=== PATIENT | female | born 1975 | race Caucasian/White ===

== ENCOUNTER 2024-06-18 14:44 | Emergency (ER) | payer OTHER ==
[2024-06-18 14:56] VITALS: BP 126/82; PULSE 97; RESP 18; TEMP 97.8
[2024-06-18 15:45] LABS: Amorphous Sediment,Urine Rare /hpf; Appearance,Urine Cloudy (Clear); Bacteria,Urine Occasional /hpf; Bilirubin,Urine Negative (Negative); Blood,Urine Negative (Negative); Color,Urine Colorless; Glucose,Urine (UA) Negative (Negative); Ketones,Urine Negative (Negative); Leukocyte Esterase,Urine Trace (Negative); Mucus,Urine Rare /hpf; Nitrite,Urine Negative (Negative); PH, Urine 5.5 (5.0-8.0); Protein,Urine Negative (Negative); RBC,Urine 1 /hpf (0-5); Specific Gravity,Urine 1.004 (1.001-1.035); Squamous Epithelial Cell,Urine 6 /hpf (0-4); Urobilinogen,Urine <2.0 mg/dL (<2.0); WBC,Urine 2 /hpf (0-5)
[2024-06-18 15:48] LABS: Basophils # (A) 0.1 k/uL (0-0.2); Basophils % (A) 1 %; Eosinophils # (A) 0.2 k/uL (0-0.7); Eosinophils % (A) 2 %; HCT 42.6 % (34.0-46.0); HGB 13.6 gm/dL (11.4-16.0); Lymphocytes # (A) 2.5 k/uL (1.0-4.8); Lymphocytes % (A) 26 %; MCH 31.3 pg (25.0-35.0); MCHC 31.8 g/dL (31.0-37.0); MCV 98.4 fL (80.0-100.0); Mean Platelet Volume 6.9; Monocytes # (A) 0.3 k/uL (0-1.0); Monocytes % (A) 3 %; Neutrophils # (A) 6.5 k/uL (1.3-7.7); Neutrophils % (A) 66 %; Platelet Count 328 k/uL (150-450); RBC 4.33 m/uL (3.80-5.40); RDW 14.8 % (11.5-15.5); WBC 9.9 k/uL (3.8-10.6)
[2024-06-18 16:10] LABS: ALT 32 U/L (4-34); African American GFR (CKD) >90 (>60 ml/min/1.73 sqM); Anion Gap 15 mmol/L; Blood Urea Nitrogen 10 mg/dL (7-17); Calcium 9.9 mg/dL (8.4-10.2); Carbon Dioxide 22 mmol/L (22-30); Chloride 99 mmol/L (98-107); Glucose 77 mg/dL (74-99); Lipase 115 U/L (23-300); Non-African American GFR(CKD) >90 (>60 ml/min/1.73 sqM); Sodium 136 mmol/L (137-145)
[2024-06-18] MEDS: LORazepam 2 MG/ML INJ IV STA ×2 (16:13→18:36)
[2024-06-18] MEDS: SODIUM CHLORIDE 0.9% 1,000 ML IV STA (16:15)
--- NOTE | 2024-06-18 16:22 | ED ---
Alcohol HPI - General Chief Complaint: Alcohol Stated Complaint: ETOH Time Seen by Provider: 06/18/24 14:45 Source: patient, EMS, RN notes reviewed Mode of arrival: EMS Limitations: no limitations - History of Present Illness Initial Comments: 48-year-old female presents emergency department via EMS from [place] for alcohol intoxication. Patient states she drinks heavily daily. Patient does note that she is having some withdrawal symptoms. She states that she is primarily shaky denies any hallucinations. Patient denies any chest pain shortness of breath fevers chills. Patient states she was hospitalized a few weeks ago was on phenobarbital. Patient denies any drug use. - Related Data Home Medications Medication Instructions Recorded Confirmed Budesonide/Formoterol Fumarate 2 puff INHALATION RT-BID 06/18/24 06/19/24 [Symbicort 160-4.5 Mcg Inhaler] Dicyclomine [Bentyl] 10 mg PO TID 06/18/24 06/19/24 Folic Acid 1 mg PO DAILY 06/18/24 06/19/24 Metoprolol Tartrate [Lopressor] 50 mg PO DAILY 06/18/24 06/19/24 Pantoprazole Sodium [Protonix] 20 mg PO BID 06/18/24 06/19/24 Thiamine [Vitamin B-1] 100 mg PO DAILY 06/18/24 06/19/24 amLODIPine [Norvasc] 10 mg PO DAILY 06/18/24 06/19/24 diazePAM [Valium] 10 mg PO TID 06/18/24 06/19/24 lisinopriL 40 mg PO DAILY 06/18/24 06/19/24 Allergies Allergy/AdvReac Type Severity Reaction Status Date / Time cephalexin [From Keflex] Allergy Intermediate Swelling Verified 06/19/24 09:07 Penicillins Allergy Swelling Verified 06/19/24 09:07 Review of Systems ROS Statement: Those systems with pertinent positive or pertinent negative responses have been documented in the HPI. ROS Other: All systems not noted in ROS Statement are negative. General Exam Limitations: no limitations General appearance: alert, in no apparent distress Head exam: Present: atraumatic, normocephalic, normal inspection Eye exam: Present: normal appearance, PERRL, EOMI. Absent: scleral icterus, conjunctival injection, periorbital swelling ENT exam: Present: normal exam, mucous membranes moist Neck exam: Present: normal inspection, full ROM. Absent: tenderness, meningismus, lymphadenopathy Respiratory exam: Present: normal lung sounds bilaterally. Absent: respiratory distress, wheezes, rales, rhonchi, stridor Cardiovascular Exam: Present: regular rate, normal rhythm, normal heart sounds. Absent: systolic murmur, diastolic murmur, rubs, gallop, clicks GI/Abdominal exam: Present: soft, normal bowel sounds. Absent: distended, tenderness, guarding, rebound, rigid Neurological exam: Present: alert, oriented X3, CN II-XII intact Skin exam: Present: warm, dry, intact, normal color. Absent: rash Course Vital Signs 06/18/24 14:48 Temperature 97.8 F Pulse Rate 97 Respiratory 18 Rate Blood Pressure 126/82 O2 Sat by Pulse 94 L Oximetry Medical Decision Making - Medical Decision Making Was pt. sent in by a medical professional or institution (, PA, SHEET METAL FABRICATOR, urgent care, hospital, or skilled nursing...) When possible be specific @ -[place] Did you speak to anyone other than the patient for history (EMS, parent, family, police, friend...)? What history was obtained from this source @ -No Did you review nursing and triage notes (agree or disagree)? Why? @ -I reviewed and agree with nursing and triage notes Were old charts reviewed (outside hosp., previous admission, EMS record, old EKG, old radiological studies, urgent care reports/EKG's, skilled nursing records)? Report findings @ -No old charts were reviewed Differential Diagnosis (chest pain, altered mental status, abdominal pain women, abdominal pain men, vaginal bleeding, weakness, fever, dyspnea, syncope, headache, dizziness, GI bleed, back pain, seizure, CVA, palpatations, mental health, musculoskeletal)? @ -Alcohol abuse alcohol intoxication, alcohol withdrawal EKG interpreted by me (3pts min.). @ -None X-rays interpreted by me (1pt min.). @ -None done CT interpreted by me (1pt min.). @ -None done U/S interpreted by me (1pt. min.). @ -None done What testing was considered but not performed or refused? (CT, X-rays, U/S, labs)? Why? @ -None What meds were considered but not given or refused? Why? @ -None Did you discuss the management of the patient with other professionals (professionals i.e. DrEvan, PA, SHEET METAL FABRICATOR, lab, RT, psych nurse, social services specialist, clerk supervisor, teacher, planned giving officer, sample case porter)? Give summary @ -No Was smoking cessation discussed for >3mins.? @ -No Was critical care preformed (if so, how long)? @ -No Were there social determinants of health that impacted care today? How? (Homelessness, low income, unemployed, alcoholism, drug addiction, granger sportation, low edu. Level, literacy, decrease access to med. care, correction, rehab)? @ -No Was there de-escalation of care discussed even if they declined (Discuss DNR or withdrawal of care, Hospice)? DNR status @ -No What co-morbidities impacted this encounter? (DM, HTN, Smoking, COPD, CAD, Cancer, CVA, ARF, Chemo, Hep., AIDS, mental health diagnosis, sleep apnea, morbid obesity)? @ -Alcohol abuse Was patient admitted / discharged? Hospital course, mention meds given and route, prescriptions, significant lab abnormalities, going to OR and other pertinent info. @ -Discharged patient laboratory studies unremarkable patient has no complaints. Patient not show any significant signs of alcohol withdrawal she is stable for discharge back to [place] for treatment as she was sent here from there facility Undiagnosed new problem with uncertain prognosis? @ -No Drug Therapy requiring intensive monitoring for toxicity (Heparin, Nitro, Insulin, Cardizem)? @ -No Were any procedures done? @ -No Diagnosis/symptom? @Alcohol abuse, alcohol intoxication Acute, or Chronic, or Acute on Chronic? @ -Acute Uncomplicated (without systemic symptoms) or Complicated (systemic symptoms)? @ -Uncomplicated Side effects of treatment? @ -No Exacerbation, Progression, or Severe Exacerbation? @ -No Poses a threat to life or bodily function? How? (Chest pain, USA, [place], pneumonia, PE, COPD, DKA, ARF, appy, cholecystitis, CVA, Diverticulitis, Homicidal, Suicidal, threat to staff... and all critical care pts) @ -No - Lab Data Result diagrams: 06/18/24 15:35 06/18/24 15:35 Lab Results 06/18/24 06/18/24 06/18/24 Range/Units 15:27 15:35 15:35 WBC 9.9 (3.8-10.6) k/uL RBC 4.33 (3.80-5.40) m/uL Hgb 13.6 (11.4-16.0) gm/dL Hct 42.6 (34.0-46.0) % MCV 98.4 (80.0-100.0) fL MCH 31.3 (25.0-35.0) pg MCHC 31.8 (31.0-37.0) g/dL RDW 14.8 (11.5-15.5) % Plt Count 328 (150-450) k/uL MPV 6.9 Neutrophils % 66 % Lymphocytes % 26 % Monocytes % 3 % Eosinophils % 2 % Basophils % 1 % Neutrophils # 6.5 (1.3-7.7) k/uL Lymphocytes # 2.5 (1.0-4.8) k/uL Monocytes # 0.3 (0-1.0) k/uL Eosinophils # 0.2 (0-0.7) k/uL Basophils # 0.1 (0-0.2) k/uL Sodium 136 L (137-145) mmol/L Potassium 5.5 H (3.5-5.1) mmol/L Chloride 99 (98-107) mmol/L Carbon Dioxide 22 (22-30) mmol/L Anion Gap 15 mmol/L BUN 10 (7-17) mg/dL Creatinine 0.56 (0.52-1.04) mg/dL Est GFR (CKD-EPI)AfAm >90 (>60 ml/min/1.73 sqM) Est GFR (CKD-EPI)NonAf >90 (>60 ml/min/1.73 sqM) Glucose 77 (74-99) mg/dL Calcium 9.9 (8.4-10.2) mg/dL Magnesium 1.6 (1.6-2.3) mg/dL Total Bilirubin 1.0 (0.2-1.3) mg/dL AST 66 H (14-36) U/L ALT 32 (4-34) U/L Alkaline Phosphatase 91 (38-126) U/L Total Protein 8.7 H (6.3-8.2) g/dL Albumin 5.3 H (3.5-5.0) g/dL Lipase 115 (23-300) U/L Urine Color Colorless Urine Appearance Cloudy H (Clear) Urine pH 5.5 (5.0-8.0) Ur Specific Frazer 1.004 (1.001-1.035) Urine Protein Negative (Negative) Urine Glucose (UA) Negative (Negative) Urine Ketones Negative (Negative) Urine Blood Negative (Negative) Urine Nitrite Negative (Negative) Urine Bilirubin Negative (Negative) Urine Urobilinogen <2.0 (<2.0) mg/dL Ur Leukocyte Esterase Trace H (Negative) Urine RBC 1 (0-5) /hpf Urine WBC 2 (0-5) /hpf Ur Squamous Epith Cells 6 H (0-4) /hpf Amorphous Sediment Rare H (None) /hpf Urine Bacteria Occasional H (None) /hpf Urine Mucus Rare H (None) /hpf Disposition Clinical Impression: Alcoholic intoxication, Alcohol abuse Disposition: HOME SELF-CARE Condition: Stable Is patient prescribed a controlled substance at d/c from ED?: No Referrals: None,Stated [Primary Care Provider] - 1-2 days Time of Disposition: 16:50
[2024-06-18 16:47] LABS: AST 66 U/L (14-36); Potassium 5.5 mmol/L (3.5-5.1)
[2024-06-18 16:48] LABS: Albumin 5.3 g/dL (3.5-5.0); Alkaline Phosphatase 91 U/L (38-126); Magnesium 1.6 mg/dL (1.6-2.3); Total Protein 8.7 g/dL (6.3-8.2)
[2024-06-18] MEDS: SODIUM CHLORIDE 0.9% 500 ML 500 ML IV STA (18:18)
== END 2024-06-18 19:15 | disposition home or self-care (01) ==
LOC: EC 14:44
CPT/HCPCS: 36415; 80053; 81001; 83690; 83735; 85025; 96361; 96374; 99284

== ENCOUNTER 2024-06-18 21:13 | Observation (INO) | payer OTHER ==
--- NOTE | 2024-06-18 22:01 | ED ---
Chest Pain HPI - General Chief Complaint: Chest Pain Stated Complaint: ETOH Time Seen by Provider: 06/18/24 21:25 Source: patient, EMS, RN notes reviewed, old records reviewed Mode of arrival: EMS Limitations: no limitations - History of Present Illness Initial Comments: This is a 48-year-old female to the ER for evaluation who presents today for evaluation regards to chest pain. Patient was in the emergency room earlier today and presents again tonight for chest pain severe chest pain shaking anxiety and history of alcohol abuse MD Complaint: chest pain -: days(s) Onset: during rest, during exertion Pain Location: substernal Pain Radiation: none Severity: moderate Severity scale (1-10): 7 Quality: sharp Consistency: constant Improves With: nothing Worsens With: nothing, inspiration Anginal Symptoms: dyspnea, sense of impending doom, other Other Symptoms: palpitations Treatments Prior to Arrival: none - Related Data Home Medications Medication Instructions Recorded Confirmed Budesonide/Formoterol Fumarate 2 puff INHALATION RT-BID 06/18/24 06/19/24 [Symbicort 160-4.5 Mcg Inhaler] Dicyclomine [Bentyl] 10 mg PO TID 06/18/24 06/19/24 Folic Acid 1 mg PO DAILY 06/18/24 06/19/24 Metoprolol Tartrate [Lopressor] 50 mg PO DAILY 06/18/24 06/19/24 Pantoprazole Sodium [Protonix] 20 mg PO BID 06/18/24 06/19/24 Thiamine [Vitamin B-1] 100 mg PO DAILY 06/18/24 06/19/24 amLODIPine [Norvasc] 10 mg PO DAILY 06/18/24 06/19/24 lisinopriL 40 mg PO DAILY 06/18/24 06/19/24 Allergies Allergy/AdvReac Type Severity Reaction Status Date / Time cephalexin [From Keflex] Allergy Intermediate Swelling Verified 06/19/24 09:07 Penicillins Allergy Swelling Verified 06/19/24 09:07 Review of Systems ROS Statement: Those systems with pertinent positive or pertinent negative responses have been documented in the HPI. ROS Other: All systems not noted in ROS Statement are negative. Past Medical History Past Medical History: COPD, Hypertension, Osteoarthritis (OA) History of Any Multi-Drug Resistant Organisms: None Reported Past Surgical History: Section, Heart Catheterization, Orthopedic Surgery Past Psychological History: Anxiety Smoking Status: Current every day smoker Past Alcohol Use History: Daily Past Drug Use History: None Reported General Exam Limitations: no limitations General appearance: alert, in no apparent distress, anxious Head exam: Present: atraumatic, normocephalic, normal inspection Eye exam: Present: normal appearance, PERRL, EOMI. Absent: scleral icterus, conjunctival injection, periorbital swelling ENT exam: Present: normal exam, mucous membranes moist Neck exam: Present: normal inspection. Absent: tenderness, meningismus, lymphadenopathy Respiratory exam: Present: normal lung sounds bilaterally. Absent: respiratory distress, wheezes, rales, rhonchi, stridor Cardiovascular Exam: Present: regular rate, normal rhythm, normal heart sounds. Absent: systolic murmur, diastolic murmur, rubs, gallop, clicks GI/Abdominal exam: Present: soft, normal bowel sounds. Absent: distended, tenderness, guarding, rebound, rigid Extremities exam: Present: normal inspection, full ROM, normal capillary refill. Absent: tenderness, pedal edema, joint swelling, calf tenderness Back exam: Present: normal inspection Neurological exam: Present: alert, oriented X3, CN II-XII intact Psychiatric exam: Present: normal affect, normal mood Skin exam: Present: warm, dry, intact, normal color. Absent: rash Course Vital Signs 06/18/24 06/18/24 06/18/24 21:20 22:28 22:32 Temperature 98.4 F Pulse Rate 84 84 84 Pulse Rate [ Pulse Oximetery ] Respiratory 18 Rate Blood Pressure 112/73 O2 Sat by Pulse 94 L Oximetry 06/19/24 06/19/24 06/19/24 00:45 04:05 06:22 Temperature Pulse Rate 84 70 Pulse Rate [ Pulse Oximetery ] Respiratory 18 16 16 Rate Blood Pressure 107/83 92/60 95/66 O2 Sat by Pulse 95 97 Oximetry 06/19/24 06/19/24 06/19/24 08:59 09:27 13:00 Temperature Pulse Rate 89 77 Pulse Rate [ Pulse Oximetery ] Respiratory 16 18 Rate Blood Pressure 101/80 159/101 O2 Sat by Pulse 97 98 98 Oximetry 06/19/24 06/19/24 06/19/24 15:37 15:55 17:17 Temperature Pulse Rate 91 92 Pulse Rate [ 95 Pulse Oximetery ] Respiratory 19 18 Rate Blood Pressure 102/65 116/75 O2 Sat by Pulse 98 97 Oximetry 06/19/24 06/19/24 06/19/24 18:14 19:19 21:24 Temperature Pulse Rate 84 84 97 Pulse Rate [ Pulse Oximetery ] Respiratory 19 18 18 Rate Blood Pressure 112/76 106/69 124/73 O2 Sat by Pulse 98 96 97 Oximetry 06/19/24 21:43 Temperature 98.2 F Pulse Rate Pulse Rate [ Pulse Oximetery ] Respiratory Rate Blood Pressure O2 Sat by Pulse Oximetry - Reevaluation(s) Reevaluation #1: 06/18/24 23:30 Medical records reviewed Reevaluation #2: 06/18/24 23:30 Patient symptoms are unchanged Reevaluation #3: 06/18/24 23:30 Patient still with chest pain here in the ER informed of results and questions answered Reevaluation #4: Was pt. sent in by a medical professional or institution (, PA, CASING MATERIAL WEIGHER, urgent care, hospital, or group home...) When possible be specific @ -no Did you speak to anyone other than the patient for history (EMS, parent, family, police, friend...)? What history was obtained from this source @ -no Did you review nursing and triage notes (agree or disagree)? Why? @ -agree Are old charts reviewed (outside hosp., previous admission, EMS record, old EKG, old radiological studies, urgent care reports/EKG's, group home records)? Report findings @ -yes Differential Diagnosis (chest pain, altered mental status, abdominal pain women, abdominal pain men, vaginal bleeding, weakness, fever, dyspnea, syncope, headache, dizziness, GI bleed, back pain, seizure, CVA, palpatations, mental health, musculoskeletal)? @ -prior EKG interpreted by me (3pts min.). @ -no X-rays interpreted by me (1pt min.). @ -no CT interpreted by me (1pt min.). @ -no U/S interpreted by me (1pt. min.). @ -no What testing was considered but not performed or refused? (CT, X-rays, U/S, labs)? Why? @ -none What meds were considered but not given or refused? Why? @ -none Did you discuss the management of the patient with other professionals (terri beltran i.eEvan Tidwell, PA, CASING MATERIAL WEIGHER, lab, RT, psych nurse, social media specialist, perinatal coordinator, teacher, sports development officer, case planner)? Give summary @ -no Was smoking cessation discussed for >3mins.? @ -no Was critical care preformed (if so, how long)? @ -no Were there social determinants of health that impacted care today? How? (Homelessness, low income, unemployed, alcoholism, drug addiction, transportation, low edu. Level, literacy, decrease access to med. care, longterm, rehab)? @ -none Was there de-escalation of care discussed even if they declined (Discuss DNR or withdrawal of care, Hospice)? DNR status @ -no What co-morbidities impacted this encounter? (DM, HTN, Smoking, COPD, CAD, Cancer, CVA, ARF, Chemo, Hep., AIDS, mental health diagnosis, sleep apnea, morbid obesity)? @ -none Was patient admitted / discharged? Hospital course, mention meds given and route, prescriptions, significant lab abnormalities, going to OR and other pertinent info. @ - 48 female will be admitted for chest pain observation with significant intoxication Discharge Undiagnosed new problem with uncertain prognosis? @ -no Drug Therapy requiring intensive monitoring for toxicity (Heparin, Nitro, Insulin, Cardizem)? @ -no Were any procedures done? @ -no Diagnosis/symptom? @ -Alcohol intoxication Acute, or Chronic, or Acute on Chronic? @ -Acute Uncomplicated (without systemic symptoms) or Complicated (systemic symptoms)? @ -Complicated Side effects of treatment? @ -no Exacerbation, Progression, or Severe Exacerbation? @ -exacerbation Poses a threat to life or bodily function? How? (Chest pain, USA, [place], pneumonia, PE, COPD, DKA, ARF, appy, cholecystitis, CVA, Diverticulitis, Homicidal, Suicidal, threat to staff... and all critical care pts) @ -yes severe intoxication Reevaluation #5: Differential Chest Pain: Stable Angina, Unstable Angina, STEMI, NSTEMI Aortic Dissection, Pneumothorax, Musculoskeletal, Esophageal Spasm GERD, Cholecystitis, Pancreatitis, Zoster, this is not meant to be an all-inclusive list. - Consultations Consultation #1: Sound who agrees to admit this patient Procedures - Restraint - Face to Face Restraint Occurrence 1 Patient's Immediate Situation: Endangers self safety, Endangers others' safety, Endangers staff safety, Violent behavior Patient's Reaction to the Intervention: Uncooperative, Angry, Fearful, Nervous, Anxious Patient's Medical & Behavioral Condition: Awake Need to Continue or Terminate Restraint or Seclusion: Continue Face to Face Eval of Restraint Date: 06/19/24 Face to Face Eval of Restraint Time: 02:10 Chest Pain MDM - MDM 48 female will be admitted for chest pain observation with significant intoxication Disposition Clinical Impression: Alcoholic intoxication, Alcohol abuse, Chest pain Disposition: ADMITTED IP TO THIS HOSP Condition: Fair Is patient prescribed a controlled substance at d/c from ED?: No Time of Disposition: 23:30
[2024-06-18 22:24] LABS: Basophils # (A) 0.1 k/uL (0-0.2); Basophils % (A) 1 %; Eosinophils # (A) 0.2 k/uL (0-0.7); Eosinophils % (A) 2 %; HCT 37.5 % (34.0-46.0); HGB 12.1 gm/dL (11.4-16.0); Lymphocytes # (A) 2.4 k/uL (1.0-4.8); Lymphocytes % (A) 28 %; MCH 31.5 pg (25.0-35.0); MCHC 32.1 g/dL (31.0-37.0); MCV 98.2 fL (80.0-100.0); Mean Platelet Volume 6.8; Monocytes # (A) 0.6 k/uL (0-1.0); Monocytes % (A) 7 %; Neutrophils % (A) 59 %; Platelet Count 314 k/uL (150-450); RBC 3.82 m/uL (3.80-5.40); WBC 8.5 k/uL (3.8-10.6)
[2024-06-18] MEDS: IPRATROPIUM-ALBUTEROL 3 ML NEB INHALATION STA (22:28)
[2024-06-18 22:32] LABS: Prothrombin Time 10.8 sec (10.0-12.5)
[2024-06-18 22:34] LABS: AST 43 U/L (14-36); African American GFR (CKD) >90 (>60 ml/min/1.73 sqM); Albumin 4.6 g/dL (3.5-5.0); Anion Gap 14 mmol/L; Blood Urea Nitrogen 15 mg/dL (7-17); Calcium 9.5 mg/dL (8.4-10.2); Carbon Dioxide 24 mmol/L (22-30); Chloride 101 mmol/L (98-107); Glucose 88 mg/dL (74-99); Magnesium 1.5 mg/dL (1.6-2.3); Non-African American GFR(CKD) >90 (>60 ml/min/1.73 sqM); Phosphorus 3.6 mg/dL (2.5-4.5); Potassium 4.2 mmol/L (3.5-5.1); Sodium 139 mmol/L (137-145); Total Bilirubin 0.4 mg/dL (0.2-1.3); Total Protein 7.2 g/dL (6.3-8.2)
[2024-06-18 22:35] LABS: ALT 27 U/L (4-34); Alkaline Phosphatase 86 U/L (38-126); Lipase 138 U/L (23-300)
[2024-06-18 22:47] LABS: Alcohol 248 mg/dL
[2024-06-18] MEDS: LORazepam 2 MG/ML INJ IV STA (23:12)
[2024-06-18] MEDS: SODIUM CHLORIDE 0.9% 1,000 ML IV STA (23:12)
[2024-06-18] MEDS ORDERED: NALOXONE 0.4 MG/ML 1 ML VIAL IV PRN (23:28)
[2024-06-18] MEDS ORDERED: MORPHINE SULFATE 4 MG/ML SYRINGE IV PRN (23:28)
[2024-06-18] MEDS: SODIUM CHLORIDE 0.9% 1,000 ML IV SCH (23:52)
[2024-06-18] MEDS: MAGNESIUM SULFATE-D5W PMX 1 GM in DEXTROSE/WATER 1 100ML.BAG IVPB ONE (23:54)
[2024-06-18] MEDS: MAGNESIUM OXIDE 400 MG TAB PO STA ×2 (23:55)
[2024-06-19] MEDS: LORazepam 2 MG/ML INJ IV STA (00:40)
[2024-06-19] MEDS: SODIUM CHLORIDE 0.9% 1,000 ML IV ONE (01:00)
[2024-06-19] MEDS: diphenhydrAMINE 50 MG/ML 1 ML VIAL IVP STA (01:00)
[2024-06-19] MEDS: ZIPRASIDONE 20 MG VIAL IM STA (03:22)
[2024-06-19 05:00] LABS: ALT 25 U/L (4-34); AST 44 U/L (14-36); African American GFR (CKD) >90 (>60 ml/min/1.73 sqM); Albumin 4.5 g/dL (3.5-5.0); Alkaline Phosphatase 84 U/L (38-126); Anion Gap 11 mmol/L; Blood Urea Nitrogen 12 mg/dL (7-17); Calcium 9.1 mg/dL (8.4-10.2); Carbon Dioxide 25 mmol/L (22-30); Chloride 109 mmol/L (98-107); Glucose 77 mg/dL (74-99); Lipase 138 U/L (23-300); Magnesium 2.1 mg/dL (1.6-2.3); Non-African American GFR(CKD) >90 (>60 ml/min/1.73 sqM); Phosphorus 3.3 mg/dL (2.5-4.5); Potassium 4.3 mmol/L (3.5-5.1); Sodium 145 mmol/L (137-145); Total Bilirubin 0.4 mg/dL (0.2-1.3); Total Protein 7.4 g/dL (6.3-8.2)
[2024-06-19 05:01] LABS: Basophils % (A) 1 %; Eosinophils # (A) 0.2 k/uL (0-0.7); Eosinophils % (A) 3 %; HCT 39.3 % (34.0-46.0); HGB 12.8 gm/dL (11.4-16.0); Lymphocytes # (A) 2.8 k/uL (1.0-4.8); Lymphocytes % (A) 50 %; MCH 31.6 pg (25.0-35.0); MCHC 32.7 g/dL (31.0-37.0); MCV 96.5 fL (80.0-100.0); Mean Platelet Volume 7.8; Monocytes # (A) 0.3 k/uL (0-1.0); Monocytes % (A) 5 %; Neutrophils # (A) 2.3 k/uL (1.3-7.7); Neutrophils % (A) 40 %; Platelet Count 211 k/uL (150-450); RBC 4.07 m/uL (3.80-5.40); RDW 15.6 % (11.5-15.5); WBC 5.6 k/uL (3.8-10.6)
[2024-06-19] MEDS ORDERED: LORazepam 0.5 MG TAB PO PRN (06:41)
--- NOTE | 2024-06-19 06:57 | P.HPIM ---
History of Present Illness H&P Date: 06/19/24 Chief Complaint: Chest pain 48-year-old female with alcohol abuse Patient is heavily sedated report was obtained by discussing the case with ED doctor and the nurse Patient coming into the hospital for evaluation reporting chest pain. He is known to have alcohol abuse and dependence she was earlier at [place] for alcohol intoxication, he was evaluated in the ED earlier and was discharged back to [place]. However she comes back because [facility] did not have an admitting nurse and was not able to accept her. While waiting in the ED she started drinking again, confirmed by increasing alcohol level in the blood her belongings were taken away patient became aggressive at 1 point she was in 4 point restraints and then she was given Zanedon review of systems Pertinent positives as noted in HPI. All other systems were reviewed and are negative on exam Constitutional: No acute distress, Eyes: Anicteric sclerae, moist conjunctiva, Pupils equal round reactive to light Lungs: Clear to auscultation Clear to percussion Normal respiratory effort, no accessory muscle use Cardiovascular: Heart regular in rate and rhythm, No murmurs, gallops, or rubs No peripheral edema Abdominal: Soft Nontender, no guarding, rebound or rigidity Abdomen moving with respiration Normoactive bowel sounds Extremities: No digital cyanosis No clubbing Pedal pulses intact and symmetrical Radial pulses intact and symmetrical No calf tenderness Psychiatric: Heavily sedated sleeping at this time Neuro unable to examine due to patient heavily sedated Past Medical History Past Medical History: COPD, Hypertension, Osteoarthritis (OA) History of Any Multi-Drug Resistant Organisms: None Reported Past Surgical History: Section, Heart Catheterization, Orthopedic Surgery Past Psychological History: Anxiety Smoking Status: Current every day smoker Past Alcohol Use History: Daily Past Drug Use History: None Reported Medications and Allergies Home Medications Medication Instructions Recorded Confirmed Type Budesonide/Formoterol Fumarate 2 puff INHALATION RT-BID 06/18/24 06/18/24 History [Symbicort 160-4.5 Mcg Inhaler] Dicyclomine [Bentyl] 10 mg PO TID 06/18/24 06/18/24 History Folic Acid 1 mg PO DAILY 06/18/24 06/18/24 History Metoprolol Tartrate [Lopressor] 50 mg PO DAILY 06/18/24 06/18/24 History Pantoprazole Sodium [Protonix] 20 mg PO BID 06/18/24 06/18/24 History Thiamine [Vitamin B-1] 100 mg PO DAILY 06/18/24 06/18/24 History amLODIPine [Norvasc] 10 mg PO DAILY 06/18/24 06/18/24 History diazePAM [Valium] 10 mg PO TID 06/18/24 06/18/24 History lisinopriL 40 mg PO DAILY 06/18/24 06/18/24 History Allergies Allergy/AdvReac Type Severity Reaction Status Date / Time cephalexin [From Keflex] Allergy Intermediate Swelling Verified 06/18/24 17:24 Penicillins Allergy Swelling Verified 06/18/24 17:24 Physical Exam Vitals: Vital Signs Temp Pulse Resp BP Pulse Ox 06/19/24 06:22 70 16 95/66 97 06/19/24 04:05 84 16 92/60 95 06/19/24 00:45 18 107/83 06/18/24 22:32 84 06/18/24 22:28 84 06/18/24 21:20 98.4 F 84 18 112/73 94 L Intake and Output 06/18/24 06/18/24 06/19/24 14:59 22:59 06:59 Other: Weight 64.41 kg Results CBC & Chem 7: 06/19/24 06:00 06/19/24 06:00 Labs: Abnormal Lab Results - Last 24 Hours (Table) 06/18/24 06/19/24 06/19/24 Range/Units 22:14 00:39 06:00 RDW 15.6 H (11.5-15.5) % Chloride (98-107) mmol/L Magnesium 1.5 L (1.6-2.3) mg/dL AST 43 H (14-36) U/L Serum Alcohol 248 H* 311 H* mg/dL 06/19/24 Range/Units 06:00 RDW (11.5-15.5) % Chloride 109 H (98-107) mmol/L Magnesium (1.6-2.3) mg/dL AST 44 H (14-36) U/L Serum Alcohol mg/dL Assessment and Plan Assessment: 48-year-old female with alcohol abuse coming in with alcohol intoxication and chest pain discussed case with ED doctor and accepted the admission for severe acute alcohol tox occlusion chest pain () stay more than 2 midnights Severe alcohol intoxication Monitor for alcohol withdrawal syndrome Benzos per CIWA scale Thiamine 100 mg p.o. daily IV fluid hydration normal saline 100 cc/h Seizure precautions Fall precautions Hypomagnesemia Replace IV in the ED Follow-up levels Blood work reviewed overall unremarkable Troponins negative White count 8.5 hemoglobin 12 unremarkable Sodium 139 potassium 4.3 BUN 15 creatinine 0.75 unremarkable Full code DVT prophylaxis Lovenox 40 mg subcu daily
[2024-06-19] MEDS: ENOXAPARIN 40 MG/0.4 ML SYRINGE SQ SCH (09:24)
[2024-06-19] MEDS: THIAMINE 100 MG TAB PO SCH (09:28)
[2024-06-19] MEDS: PANTOPRAZOLE 40 MG/10 ML VIAL IV SCH (09:29)
--- NOTE | 2024-06-19 11:20 | P.PN ---
Subjective Progress Note Date: 06/12/24 Hospital course Patient is a 48-year-old female with a past medical history of alcohol abuse who came to the hospital for evaluation of chest pain. Patient is known to have alcohol abuse and dependence. Patient was earlier sent from [place] for evaluation of chest pain. Patient was evaluated by ED and discharged back to [place]. However she came back to the ED because [place] did not have an admitting nurse who was able to accept her. While waiting in the ED patient started drinking again. Patient's alcohol levels were elevated. Patient in the ED did become aggressive and required 4 point restraints as well as Geodon. Patient seen this morning. She states that she is feeling cold. She appears calm. Physical exam General examination - Alert and Oriented 3 in NAD Heart - + S1S2 no murmurs Lungs - Clear to auscultation Abdomen soft NT ND +ve BS Extremities - No edema BORING MILL SET UP OPERATOR VERTICAL - Moving all 4 extremities spontaneously Psych -patient is somnolent lethargic Assessment and plan Alcohol intoxication Patient was given Geodon and is currently somnolent Will monitor for withdrawal CIWA protocol Thiamine IV hydration normal saline 100 cc an hour Seizure precautions Fall precautions Hypomagnesemia Repleted in the ED DVT prophylaxis: Lovenox Labs unremarkable so no need to trend Objective - Vital Signs Vital signs: Vital Signs Temp 98.4 F 06/18/24 21:20 Pulse 89 06/19/24 09:27 Resp 16 06/19/24 09:27 BP 101/80 06/19/24 09:27 Pulse Ox 98 06/19/24 09:27 FiO2 Intake & Output 06/18/24 06/19/24 06/19/24 18:59 06:59 18:59 Weight 64.41 kg - Labs CBC & Chem 7: 06/19/24 06:00 06/19/24 06:00 Labs: Abnormal Lab Results - Last 24 Hours (Table) 06/18/24 06/19/24 06/19/24 Range/Units 22:14 00:39 06:00 RDW 15.6 H (11.5-15.5) % Chloride (98-107) mmol/L Magnesium 1.5 L (1.6-2.3) mg/dL AST 43 H (14-36) U/L Serum Alcohol 248 H* 311 H* mg/dL 09/17/24 Range/Units 06:00 RDW (11.5-15.5) % Chloride 109 H (98-107) mmol/L Magnesium (1.6-2.3) mg/dL AST 44 H (14-36) U/L Serum Alcohol mg/dL
[2024-06-19] MEDS: LORazepam 1 MG TAB PO PRN (12:59)
[2024-06-19] MEDS: LORazepam 2 MG/ML INJ IV PRN (19:26)
[2024-06-20] MEDS: MELATONIN 5 MG TABLET PO SCH (01:24)
[2024-06-20] MEDS: ONDANSETRON 4 MG/2 ML VIAL IVP PRN (06:34)
[2024-06-20] MEDS: LORazepam 2 MG/ML INJ IV PRN (10:15)
--- NOTE | 2024-06-20 11:07 | P.PN ---
Subjective Progress Note Date: 06/20/24 Hospital course Patient is a 48-year-old female with a past medical history of alcohol abuse who came to the hospital for evaluation of chest pain. Patient is known to have alcohol abuse and dependence. Patient was earlier sent from [place] for evaluation of chest pain. Patient was evaluated by ED and discharged back to [place]. However she came back to the ED because [place] did not have an admitting nurse who was able to accept her. While waiting in the ED patient started drinking again. Patient's alcohol levels were elevated. Patient in the ED did become aggressive and required 4 point restraints as well as Geodon. Patient seen this morning. She states that she is shaking due to the withdrawal. She is requesting for IV Ativan. 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 Psych -patient is somnolent lethargic Assessment and plan Alcohol intoxication Patient seen this morning appears to be in withdrawal CIWA protocol Thiamine IV hydration normal saline 100 cc an hour Seizure precautions Fall precautions Hypomagnesemia Repleted in the ED DVT prophylaxis: Lovenox Labs unremarkable so no need to trend Anticipate patient will go back to [place] tomorrow Objective - Vital Signs Vital signs: Vital Signs Temp 97.6 F 06/20/24 07:21 Pulse 69 06/20/24 07:21 Resp 16 06/20/24 07:21 BP 135/89 06/20/24 07:21 Pulse Ox 100 06/20/24 07:21 FiO2 Intake & Output 06/19/24 06/20/24 06/20/24 18:59 06:59 18:59 Weight 64.41 kg Other: Voiding Method Toilet Toilet # Voids 3 2 - Labs CBC & Chem 7: 06/19/24 06:00 06/19/24 06:00
[2024-06-20] MEDS: DICYCLOMINE 10 MG CAP PO PRN (12:20)
[2024-06-20] MEDS: METOPROLOL TARTRATE 50 MG TAB PO SCH (14:10)
[2024-06-20] MEDS: amLODIPine 10 MG TAB PO SCH (14:11)
[2024-06-20] MEDS: lisinopriL 20 MG TAB PO SCH (14:11)
[2024-06-20] MEDS: PANTOPRAZOLE 40 MG TABLET PO SCH (20:00)
[2024-06-20] MEDS: traZODone HCL 50 MG TAB PO SCH (20:00)
[2024-06-20] MEDS: SYMBICORT 160-4.5 MCG INHALER INHALATION SCH (21:16)
--- NOTE | 2024-06-21 11:34 | P.PN ---
Subjective Progress Note Date: 06/21/24 Hospital course Patient is a 48-year-old female with a past medical history of alcohol abuse who came to the hospital for evaluation of chest pain. Patient is known to have alcohol abuse and dependence. Patient was earlier sent from [place] for evaluation of chest pain. Patient was evaluated by ED and discharged back to [place]. However she came back to the ED because [place] did not have an admitting nurse who was able to accept her. While waiting in the ED patient started drinking again. Patient's alcohol levels were elevated. Patient in the ED did become aggressive and required 4 point restraints as well as Geodon. Patient states that she is still in withdrawal. 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 Psych -appears anxious Assessment and plan Alcohol intoxication Patient seen this morning appears to be in withdrawal CIWA protocol Thiamine IV hydration normal saline 100 cc an hour Seizure precautions Fall precautions Patient had a total of 8 mg of Ativan in the past 24 hours On discharge we will plan to discharge her straight to [place] Hypomagnesemia Repleted in the ED DVT prophylaxis: Lovenox Labs unremarkable so no need to trend Anticipate patient will go back to [place] tomorrow Objective - Vital Signs Vital signs: Vital Signs Temp 98.1 F 06/21/24 08:00 Pulse 66 06/21/24 08:00 Resp 17 06/21/24 08:00 BP 140/89 06/21/24 08:00 Pulse Ox 97 06/21/24 08:00 FiO2 Intake & Output 06/20/24 06/21/24 06/21/24 18:59 06:59 18:59 Intake Total 354 Balance 354 Intake: Oral 354 Other: Voiding Method Toilet Toilet # Voids 5 2 - Labs CBC & Chem 7: 06/19/24 06:00 06/19/24 06:00
[2024-06-21 15:00] VITALS: RESP 16
[2024-06-22 07:19] VITALS: BP 101/69; PULSE 70; TEMP 97.9
--- NOTE | 2024-06-22 12:04 | P.DS ---
Providers Date of admission: 06/18/24 23:29 Attending physician: Mick Reed MD Primary care physician: Darwin Cook DO Hospital Course: Discharge Diagnosis: Alcoholic withdrawal Hypomagnesemia Hospital Course: Patient is a 48-year-old female with a past medical history of alcohol abuse who came to the hospital for evaluation of chest pain. Patient is known to have alcohol abuse and dependence. Patient was earlier sent from [place] for evaluation of chest pain. Patient was evaluated by ED and discharged back to [place]. However she came back to the ED because [place] did not have an admitting nurse who was able to accept her. While waiting in the ED patient started drinking again. Patient's alcohol levels were elevated. Patient in the ED did become aggressive and required 4 point restraints as well as Geodon. Patient was treated for alcohol withdrawal as per the [facility] protocol. At the time of discharge patient states that she is feeling better and wanted to be discharged. She states that she will be going straight to [place] after discharge. 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 Patient Condition at Discharge: Fair Plan - Discharge Summary New Discharge Prescriptions: Continue amLODIPine [Norvasc] 10 mg PO DAILY Folic Acid 1 mg PO DAILY Thiamine [Vitamin B-1] 100 mg PO DAILY Pantoprazole Sodium [Protonix] 20 mg PO BID Metoprolol Tartrate [Lopressor] 50 mg PO DAILY lisinopriL 40 mg PO DAILY Dicyclomine [Bentyl] 10 mg PO TID Budesonide/Formoterol Fumarate [Symbicort 160-4.5 Mcg Inhaler] 2 puff INHALATION RT-BID Discontinued diazePAM [Valium] 10 mg PO TID Discharge Medication List Budesonide/Formoterol Fumarate [Symbicort 160-4.5 Mcg Inhaler] 2 puff INHALATION RT-BID 06/18/24 [History] Dicyclomine [Bentyl] 10 mg PO TID 06/18/24 [History] Folic Acid 1 mg PO DAILY 06/18/24 [History] Metoprolol Tartrate [Lopressor] 50 mg PO DAILY 06/18/24 [History] Pantoprazole Sodium [Protonix] 20 mg PO BID 06/18/24 [History] Thiamine [Vitamin B-1] 100 mg PO DAILY 06/18/24 [History] amLODIPine [Norvasc] 10 mg PO DAILY 06/18/24 [History] lisinopriL 40 mg PO DAILY 06/18/24 [History] Follow up Appointment(s)/Referral(s): Darwin Cook DO [Primary Care Provider] - 1-2 days Discharge/Stand Alone Forms: AA Meetings [facility] - [facility], AA Meetings [place], Who Do I Call?, Community Resources, Outpatient Counseling, Inp Substance Abuse Facilities
== END 2024-06-22 12:46 | disposition home or self-care (01) ==
LOC: EC 21:13 → 6NMEDSUR 23:29 → 4SSUR 06-19 00:49 → 6NMEDSUR 06-19 14:48
PROVIDERS: ADMIT Internal Medicine; ATTEND Internal Medicine
DX: F10.239 Alcohol dependence with withdrawal, unspecified (principal); F10.229 Alcohol dependence with intoxication, unspecified; E83.42 Hypomagnesemia; Y90.8 Blood alcohol level of 240 mg/100 ml or more; F41.9 Anxiety disorder, unspecified; Z78.1 Physical restraint status; R45.6 Violent behavior; F17.200 Nicotine dependence, unspecified, uncomplicated; Z79.51 Long term (current) use of inhaled steroids; Z79.899 Other long term (current) drug therapy; Z88.0 Allergy status to penicillin; Z88.1 Allergy status to other antibiotic agents
CPT/HCPCS: 36415; 80053; 80320; 83690; 83735; 84100; 84484; 85025; 85610; 94640; 94760; 96361; 96365; 96366; 96372; 96375; 96376; 99285